=== PATIENT | male | born 1975 ===

== ENCOUNTER 2019-02-19 05:55 | Day surgery (SDC) | payer BC ==
[2019-02-19 06:38] VITALS: BMI 27.0
[2019-02-19] MEDS ORDERED: ceFAZolin 1 gm in NS 2 GM/200 ML BAG IVPB ONE ×2 (07:14→11:56)
[2019-02-19] MEDS ORDERED: Propofol 10 mg/ml Inj (20 ML) ONE (07:35)
[2019-02-19] MEDS ORDERED: Midazolam 2 MG/2 ML VIAL ONE (07:35)
[2019-02-19] MEDS ORDERED: Rocuronium 10 mg/ml (5 ml) ONE (07:38)
[2019-02-19] MEDS ORDERED: Morphine 4 MG/ML VIAL ONE (12:30)
[2019-02-19] MEDS: HYDROmorphone 0.5 mg/0.5 ml ISec IVP PRN ×5 (13:18→15:38)
--- NOTE | 2019-02-19 15:37 | RAD ---
Date of service: 02/19/2019 PROCEDURE: Radiographs of the right elbow. HISTORY: s/p distal biceps tendon rupture repair COMPARISON: No prior. TECHNIQUE: Four views obtained. FINDINGS: BONES: Bony detail obscured by overlying fiberglass cast. No acute fracture. There is a button suture at the level of the proximal radial diaphysis. JOINTS: Normal. No osteoarthritis. SOFT TISSUES: Normal. JOINT EFFUSION: None. OTHER FINDINGS: None. IMPRESSION: No acute fracture.
--- NOTE | 2019-02-19 17:35 | PCM.SURG1 ---
Surgeon's Initial Post Op Note - Surgeon's Notes Surgeon: Nir Bolanos MD Supervisor Money Room: Rita Galvan PA-C Type of Anesthesia: General Endo Pre-Operative Diagnosis: Right elbow: Acute Distal Biceps complete tear Operative Findings: Right Elbow: #1 Chronic distal biceps severe tendonopathy. #2 Acute component to complete distal biceps tear. #3 Significant chronic adhesions cubital fossa (with adhesive bands between lacterus fibrosus, pronator teres, brachial artery, biceps tendon stump, supinator, and Median Nerve) Post-Operative Diagnosis: Right Elbow: #1 Chronic distal biceps severe tendonopathy. #2 Acute component to complete distal biceps tear. #3 Significant chronic adhesions cubital fossa (with adhesive bands between lacterus fibrosus, pronator teres, brachial artery, biceps tendon stump, supinator, and Median Nerve) Operation Performed: Right Elbow: #1 Primary Repair Distal Biceps Tendon. #2 Extensive Debridement/ lysis of adhesions at cubital fossa region. #3 placement in long arm cast Specimen/Specimens Removed: Specimen= biceps tendonopathy and tenosynovitis tissue sent to path. Tourniquet time= 0 min. complications= none. Implants= Arthrex: A- 7mm width x 10mm length Biocomposite tenodesis screw, B- 12 mm tension slide biceps button, C- #2 Fiberloop suture Estimated Blood Loss: EBL {In ML}: 20 Blood Products Given: N/A Drains Used: No Drains Post-Op Condition: Good Date of Surgery/Procedure: 02/19/19 Time of Surgery/Procedure: 09:00
[2019-02-19 17:36] VITALS: BP 116/81; PULSE 66; RESP 18; TEMP 98; O2SAT 100
--- NOTE | 2019-02-19 17:37 | CP.PCM.PN ---
Subjective - Date & Time of Evaluation Date of Evaluation: 02/19/19 Time of Evaluation: 16:45 - Subjective Subjective: Anesthesia Note: I was asked to assess the patient for possible postoperative nerve block for pain control. Patient is 43yo M with no significant PMHx s/p right distal biceps repair with extensive debridement and synovectomy under general endotrachael anesthesia. He was seen in PACU, reports moderate amount of pain at the operative site and tingling of the dorsal aspect of the right thumb. Objectively he had good strength of the right hand 4/4 and brisk capillary refill. Pulse oximeter was placed on the right index finger and showed good waveform with O2 sat of 95% which is comparable to the left index finger of 96%. Given the tingling of the right thumb which was not present prior to the surgery decision was made to withhold the peripheral nerve block at this time. Patient and family was made aware of this decision and agrees. Surgeon Dr. Rich was also made aware of the tingling of the thumb. Patient was also made aware the notify Dr. Rich if the tingling persists or worsens. Objective - Vital Signs/Intake and Output Vital Signs (last 24 hours): Temp Pulse Resp BP Pulse Ox 98.6 F 88 13 126/68 95 02/19/19 17:00 02/19/19 17:00 02/19/19 17:00 02/19/19 17:00 02/19/19 17:15 Intake and Output: 02/19/19 02/19/19 06:59 18:59 Intake Total 2400 Balance 2400
--- NOTE | 2019-02-23 19:46 | OP ---
PROCEDURE DATE: 02/19/2019 PREOPERATIVE DIAGNOSIS: Right elbow acute distal biceps complete tear. POSTOPERATIVE DIAGNOSES: Right elbow: 1. Chronic distal biceps severe tendinopathy. 2. Acute component/ complete distal biceps tear. 3. Significant chronic adhesions cubital fossa with adhesive bands between Lacterus fibrosis, pronator teres, brachial artery, biceps tendon stump, supinator and median nerve. SURGEON: Nir Bolanos MD WOOD SCIENCE PROFESSOR: Rita Galvan PA-C JUSTIFICATION FOR WOOD SCIENCE PROFESSOR: Rita Galvan is a certified physician behavioral health assistant whose skilled surgical service was an absolute necessity for successful completion of the procedure as he provided skilled surgical assistance with positioning of the patient, positioning of extremity, management of the surgical june, detailed and careful surgical approach while protecting neurovascular structures, careful lysis of adhesions and debridement with dissection down to distal biceps stump, release of biceps stump and preparation including passage of whipstitch and removal of severe tendinopathy with extensive debridement, preparation of radial tuberosity/insertion point for distal biceps primary repair, placement of final fixation and distal biceps primary repair including passage of tension slide and placement of tenodeses screw, wound closure, placement of long arm cast. Rita Galvan was present for the entire case and was an absolute necessity for successful completion of the procedure. TYPE OF ANESTHESIA: General endotracheal anesthesia, postop regional nerve block was not done. SPECIMEN: Biceps tendinopathy and tenosynovitis tissue sent to pathology. TOURNIQUET TIME: 0 minutes. COMPLICATIONS: None. IMPLANTS: Arthrex 7 mm width x 10 mm length BioComposite tenodesis screw, 12 mm tension slide biceps button, FiberLoop #2 suture. ESTIMATED BLOOD LOSS: 20 mL. DRAINS: None. DISPOSITION: The patient was extubated and transferred to the PACU in stable condition and tolerated the procedure well. INDICATIONS FOR SURGERY: The patient is a 43-year-old male, right-hand dominant, who presents to the office under my care for the first time on 02/16/2019 with right elbow pain and weakness since 01/29/2019. He states that on 01/29/2019, he was changing a tire when he felt a sharp pop at the anterior aspect of his elbow. He developed immediate 10/10 pain localized to the anterior and lateral aspect of the elbow as well as brachialis and biceps muscle belly radiating to the cubital fossa and radial tuberosity. Pain initially was severe and rated 10/10, but improved over the past 2 weeks significantly with residual significant weakness compared to contralateral arm, especially with supination movement. He saw two other orthopedic surgeons prior to seeing me in his residential area, both surgeons indicated him for right elbow primary distal biceps tendon surgery and he saw me for a third and final opinion. After discussing clinical exam findings with him at length, surgery was scheduled. MRI of the right elbow done at [facility] on 02/04/2019 was read as: 1. Completely torn distal biceps tendon with retraction estimated at 2 to 3 cm from radial tuberosity. 2. Insertion distal torn portion of distal biceps still attached to the radial tuberosity. 3. Surrounding hemorrhage/edema. X-rays in the office showed no fracture or dislocation with no evidence of DJD and normal alignment of joint space. Prior to the acute injury on 01/29/2019, he admits to having cubital pain at bilateral elbows over the past 2 years worse with increased activity at work as well as working out/lifting weights at the gym. He has had to modify his workout regimen over the past year to help decrease the anterior cubital pain at bilateral elbows. He noted that the anterior cubital bilateral elbow pain was worse with any biceps curls with the hand/wrist in the supination position/palm up. I became concerned that there may be a chronic tendinopathy component to his injury. 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 He was indicated for right elbow open distal biceps repair and all related indicated procedures including possible need for allograft augmentation. The risks, benefits and alternatives to the procedure were discussed at length with the patient with the risks including, but not limited to infection, neurovascular damage, need for further surgery, failure of repair, re-tear of tendon, neurovascular damage including PIN nerve and median nerve damage, loss of function, loss of limb, iatrogenic injury including proximal radius fracture, stiffness, inability to return to preinjury level of activity and occupation, development of blood clots including DVT and PE, development of chronic pain and disability, weakness, anesthesia reactions including , heterotopic ossification development. After answering all of his questions, he stated that he understood the risks and wished to proceed with surgery. We discussed the possible need for allograft augmentation in the setting of severe tendinopathy and poor quality of distal biceps tissue not amenable to holding suture or undergoing primary repair without augmentation. Our surgical plan was to first evaluate the distal biceps tendon and if indeed there was significant poor quality tissue and fear of possible primary repair failure, then allograft augmentation with acellular dermal allograft would be utilized and incorporated into the distal biceps repair construct. After answering all his questions, he agreed to the possible allograft augmentation if indicated. He watched surgical animation videos and diagnosis animation videos, after answering all his questions, he stated that he had a good understanding of his diagnosis as well as the procedure to be carried out. I reviewed at length with him and his the postop rehabilitation protocol, he stated that he understood the need for compliance with the postop rehabilitation protocol to maximize the chances of having a successful outcome after surgery. He was referred to his primary care physician for preoperative medical clearance and the procedure was scheduled at [facility] on 02/19/2019. DESCRIPTION OF PROCEDURE: The patient was identified in the preoperative holding area and the right elbow was marked for surgery. Once again, as described above, the risks, benefits, and alternatives to the procedure were discussed at length with the patient and informed consent was obtained and confirmed/Witnessed. After a brief discussion with anesthesia staff, the patient was taken to the operating room and placed on a well-padded operating room table with all bony prominences and superficial neurovascular structures well padded and a radiolucent hand table attached. Initial time-out was done with the surgeon, anesthesia staff, OR staff, all in agreement with the patient, procedure being done and the extremity being operated on. IV perioperative antibiotics were administered, 2 g Ancef. general anesthesia was administered without difficulty or complication. Examination under anesthesia was then carried out. Examination under anesthesia: No swelling, no warmth, no erythema, skin intact, full range of motion compared to contralateral elbow in flexion, extension, supination, and pronation planes. Full flexion to 150, full extension to 0, full supination and pronation to 80 in each direction with elbow at 90 flexion. No instability with negative moving valgus test, posterior lateral rotatory/dial test, negative opening to medial or lateral joint with varus or valgus stress at 30 flexion. Continuation of procedure: A tourniquet was placed high on the right arm but never inflated. Right upper extremity was prepped and draped in standard sterile fashion. Planned incision was marked approximately 3.5 cm distal to the cubital crease with the incision centered over the palpated proximal radius and marked out as a 4 cm line perpendicular to the long access of the arm. A final timeout was done with the surgeon, anesthesia staff, or staff on agreement with the patient, procedure being done and extremity being operated on. Incision was made as marked, 3.5-4 cm distal to the flexion crease of antecubital fossa, approximately 4 cm in length centered over the proximal radius perpendicular to the long access of the arm. Incision was made through skin down to subcutaneous tissue while maintaining good hemostasis. The lateral antebrachial cutaneous nerve was identified and preserved at the medial aspect of the incision and kept out of harms way throughout the course of the surgery with blunt retractor. Flexor compartment fascia was sharply incised allowing access to the interval between the flexor carpi radialis/pronator teres and the brachioradialis muscle laterally. This plane was bluntly and carefully developed allowing access to the underlying radial biceps tuberosity which was successfully palpated and visualized with the arm in supination. During the surgical approach, we encountered significant scar tissue and adhesions with chronic appearance. The bands of scar tissue/adhesions were complex and involved the distal biceps remnant stump on the radial tuberosity, lacterus fibrosis, median nerve, radial artery, brachioradialis, brachialis, pronator teres, flexor carpi radialis, and the distal biceps proximal stump. At first, the distal biceps proximal stump was not identifiable and embedded within this extensive scar tissue/adhesion network. The lacterus fibrosis was identified and traced proximally to help identify the distal biceps proximal stump. To ensure that the correct structure was identified with certainty, a secondary incision measuring approximately 2 cm was created just distal to the biceps muscle belly. Incision was made to skin down subtends tissue down to the biceps anterior aspect of the muscle belly. With blunt retractors in place, we were able to identify the distal biceps proximal stump within the network of adhesions/scar tissue and with direct visual confirmation, the biceps muscle belly moved in unison with the distal biceps proximal stump movement/pulling on the tendon. Once it was confirmed that the distal biceps proximal torn tendon stump was correctly identified, we then proceeded with careful, extensive debridement of the adhesions/scar tissue from the surrounding vital neurovascular structures and the distal biceps proximal stump. This required significant dedicated surgical time to carefully releasing the distal biceps proximal tendon stump without iatrogenic injury to the surrounding neurovascular and soft tissue structures entangled within the web of scar tissue/adhesions. While maintaining good hemostasis, the distal biceps proximal tendon stump was freed in its entirety without any obvious iatrogenic injury to the scarred in neurovascular and soft tissue structures. The distal biceps proximal tendon stump was carefully evaluated and indeed showed signs of significant, chronic tendinopathy. The overlying layer surrounding the distal biceps proximal tendon was a mixture of tendinopathy and adhesions/scar tissue. This overlying layer was carefully peeled off to allow access to the healthier underlying distal biceps tendon. Once the overlying layer of scar tissue/tendinopathy tissue was peeled off of the distal biceps tendon/resected successfully, it was sent to pathology for evaluation. The underlying distal biceps tendon tissue still exhibited significant tendinopathy but appeared to have enough good quality tissue amenable to primary distal biceps repair. The mobility of the distal biceps tendon was then evaluated. There did appear to be adhesions proximally restricting motion. The adhesions within our surgical approach/wound where carefully released completely. Using the secondary proximal incision, any proximal adhesions were bluntly released/dissected. The remainder of the path starting at the distal aspect of the distal biceps tendon working our way proximally to the muscle belly was completely released of any adhesions/bands of scar tissue restricting motion. Once this was completed and the tendon was completely freed, we were able to reapproximate the distal biceps tendon to the radial tuberosity with ease. There was significant remnant distal biceps fibers still attached to the radial tuberosity measuring approximately 2 cm in length. This would also affect our total length for the primary repair distal biceps tendon. In the end, we were able to reapproximate the distal biceps tendon to the radial tuberosity at less than 30 elbow flexion with ease indicating good mobility of the distal biceps proximal stump achieved. With the use of nonpenetrating clamps, the distal biceps proximal tendon was held in position and #2 FiberWire/fiber loop suture was then run with locking whipstitch configuration. Normally, only the distal 2 cm of the distal biceps tendon is whipstitched for the primary repair. In the setting of significant tendinopathy, I was concerned that there was potential for re-tear just proximal to the end of the whipstitch configuration. Therefore, the whipstitch configuration with the #2 FiberWire/fiber loop suture was started more proximal than usual at the level of the musculotendinous junction of the biceps. The suture was then advanced distally with multiple locking whipstitch configuration until the suture exited the distal aspect of the tendon. The distal tissue was debrided to more healthier distal biceps tendon. The distal biceps tendon tissue held the #2 FiberWire suture well despite the significant tendinopathy and appeared to be of good enough quality for the primary repair. The thickness of the tendon was already almost 7 mm in width and the addition of allograft augmentation with potentially create a significant size problem and create unnecessary forces at the docking site for the primary repair at the radial tuberosity potentially creating iatrogenic fracture at the proximal radius as a result of increased pressure from tissue bulk. We then turned our attention to preparation of the radial tuberosity. With the blunt Hohmann retractors in place with care taken to avoid iatrogenic injury especially to the PIN. The wrist was held at hyper supination protecting the PIN during preparation of the radial tuberosity. The insertion point for the distal biceps tendon was easily identified as there was significant remnant tissue remaining at the radial tuberosity. This site was marked. The remnant distal biceps tissue at the radial tuberosity was debrided. A 3.2 mm guidewire was then advanced center center on the radial tuberosity with the wrist in hyper supination position bringing the radial tuberosity into our field under direct visualization with the drill aiming 30 ulnar to maximize the distance from the posterior interosseous nerve. Biplanar fluoroscopic imaging was used to confirm good positioning of the guidewire at the radial tuberosity. The guidewire was advanced through both the near and far cortex. An 8 mm cannulated reamer was then passed over the guidewire through the near cortex only creating an 8 mm socket. Copious irrigation was then used to irrigate and remove any bony fragments as a result from the drilling. The socket was confirmed under direct visualization to be well-contained with no breakthrough on the sides and good bony coverage circumferentially. The 2 suture ends exiting the distal biceps were then passed through the tension slide 12 mm button from Arthrex in opposite directions. With the tension slide distal biceps button held on the button sebastian, the button was passed through the near and far cortex and flipped directly onto the far cortex of the proximal radius with no interposed soft tissue seen. This was confirmed with biplanar fluoroscopic imaging confirming that the button lead flat directly onto the bone on the opposite side of the proximal radius from the radial tuberosity. The 2 ends of the suture were then shuttled and using the tension slide technique the distal biceps tendon was advanced into the socket with ease. Prior to drilling and preparation of the proximal radius/radial tuberosity, the distal biceps tendon was confirmed to pass through the 7 mm sizing block to ensure that it would fit in the 8 mm socket with ease. Once the biceps tendon was advanced into the socket at a minimum of 1 cm depth to maximal depth, a free needle was used to pass one end of the suture through the biceps tendon itself. With the use of a knot pusher, multiple ties were carried out locking and securing the suture to each other, locking the tension slide construct with the biceps tendon well seated and secured within the socket. A 7 mm width by 10 mm length tenodesis screw, from Arthrex was then selected. One end of the suture was passed through the tenodesis screw itself. The screw was then advanced into the socket with placement of the screw on the radial side of the tendon pushing the tendon into the ulnar aspect of the tunnel. The screw was advanced until it was well seated within the socket with good fixation achieved and stability. The construct was tested and the screw was well seated with good fixation achieved. The 2 suture limbs were then tied to each other again after passing 1 limb through the distal biceps tendon once again with the use of a free needle. Once the sutures were tied down over the tenodesis screw, the distal biceps repair was complete. The construct was tested under direct visualization moving the elbow from full supination to pronation with no impingement or mechanical block seen. Were able to establish full flexion and extension with the distal biceps repair construct maintaining stability and tension with no evidence of loosening or early failure. Biplanar fluoroscopic imaging was used to confirm good placement of the socket at the proximal radius with no iatrogenic injury or fracture as well as good placement of the tension slide button with no interposed soft tissue. The wounds were then copiously irrigated with 1000 cc of normal saline. Good hemostasis was achieved and surrounding neurovascular structures were evaluated and found to be free of any iatrogenic injury. The wounds were then reapproximated with #1 Vicryl for deep tissue followed by two-point 0 Vicryl for subcutaneous tissue followed by Monocryl for skin. Sterile dressings were applied followed by a layer of sterile cast padding from the metacarpal heads to the proximal arm. The arm was then placed in a well-padded long arm cast with the elbow at 90 flexion in a neutral position. Once the long arm cast hardened, the patient was then extubated and transferred to PACU in stable condition and tolerated the procedure well. I personally examined the patient in PACU. He was neurovascularly intact with no objective deficits seen. He had 5/5 motor strength finger extension and flexion at MCP and IP joints, finger abduction and adduction, thumb extension and flexion. Sensory was intact in distribution of median nerve/radial nerve/ulnar nerve and the radial and ulnar aspect of all fingers. Prior to placement of the cast, radial artery had 2+ pulse. In recovery all fingers had brisk cap refill. The patient had subjective complaint of a small patchy area of focal tingling at the dorsal aspect of his thumb overlying the IP joint. Sensation was intact overall with subjective tingling and similar to sitting on the toilet for too long sensation. Long-arm cast was bivalved. Disposition: He will be discharged home once he is recovered from anesthesia. He is instructed to be strict nonweightbearing to the right upper extremity. Cast care was discussed at length. He has been given a prescription for Percocet for postop pain control. He will follow up in my office within 1 week and already has his postoperative appointment set up. He will contact me directly with any questions or concerns. Nir Bolanos MD [id number]
== END 2019-02-19 18:38 | disposition home or self-care (01) ==
LOC: C.SDS 05:55
PROVIDERS: ATTEND Student in an Organized Health Care Education/Training Program
DX: S46.211A Strain of muscle, fascia and tendon of other parts of biceps, right arm, initial encounter (principal); M77.8 Other enthesopathies, not elsewhere classified; S56.891A Other injury of other muscles, fascia and tendons at forearm level, right arm, initial encounter; M65.88 Other synovitis and tenosynovitis, other site; Y93.B3 Activity, free weights
CPT/HCPCS: 24342; 73080; 88305; J0690; J1170; J1885; J2001; J2250; J2270; J2405; J2704; J3010; J7120